=== PATIENT | female | born 1950 | race Caucasian/White ===

== ENCOUNTER → 2021-11-08 | Outpatient (CLI) | payer OTHER ==
[~2021-11-08] MED LIST: ASPI81CH; DILT60; ERGO50000; [UNRECOGNIZED DRUG - OTHER] OS
== END | disposition home or self-care (01) ==
LOC: LAB SHORT 11:00
DX: N39.0 Urinary tract infection, site not specified (principal)
CPT/HCPCS: 87086

== ENCOUNTER → 2022-09-05 | Outpatient (CLI) | payer OTHER | LOC: LAB SHORT 12:35 → LAB 12:35 | DX: R30.0 Dysuria (principal) | CPT/HCPCS: 87086 ==

== ENCOUNTER → 2023-08-28 | Outpatient (CLI) | payer OTHER | LOC: LAB SHORT 08:20 → LAB 08:20 | DX: R30.0 Dysuria (principal); R31.9 Hematuria, unspecified; R35.0 Frequency of micturition | CPT/HCPCS: 87077; 87086; 87186 ==

== ENCOUNTER → 2023-09-06 | Outpatient (CLI) | payer OTHER | LOC: LAB SHORT 13:11 → LAB 13:11 | DX: R30.0 Dysuria (principal) | CPT/HCPCS: 87086 ==

== ENCOUNTER → 2023-09-28 | Outpatient (CLI) | payer OTHER | END | disposition home or self-care (01) | LOC: LAB SHORT 17:19 → LAB 17:19 | DX: R30.0 Dysuria (principal) | CPT/HCPCS: 87077; 87086; 87147; 87186 ==

== ENCOUNTER 2024-01-25 06:42 | Day surgery (SDC) | payer OTHER ==
[~2024-01-25] VITALS: Ht 166.5 cm; Wt 97.4 kg
[2024-01-25] VITALS (12 sets, daily range): BP systolic 93–141; BP diastolic 53–96
[~2024-01-25 06:42] MED LIST changes: +Acetaminophen 500 MG Tab PO SCH; +CeFAZolin Sodium 2,000 MG in NS 100 ML IV SCH; +Chlorhexidine Mouth Care 15 ML UDC MT SCH; -DILT60; +DILT60 PO; +ELIQUIS5 M4 PO; +GLUC500 PO; +Lactated Ringer's 1,000 ML IV SCH; +OxyCODONE HCL 10 MG TABCR PO SCH; +Ropivacaine 0.5% HCl/Pf 67.75 MG,EPINEPHrine HCL 0.25 MG,Ketorolac Tromethamine 15 MG,C... INFIL SCH; +TOCO1000 PO; +VITAMIN B6 PO; +Vitamin D1000 UNI1 PO
[2024-01-25] MEDS ORDERED: EQL GLUCOSAMIN PO (07:32)
[2024-01-25] MEDS ORDERED: PYRI100 PO (07:33)
[2024-01-25] MEDS ORDERED: propofoL 40 ML IV ONE (08:16)
[2024-01-25] MEDS ORDERED: HYDROmorphone HCl/Pf 1MG SYR IV PRN (09:20)
[2024-01-25] MEDS ORDERED: Bisacodyl 10 MG Supp PR PRN (09:20)
[2024-01-25] MEDS ORDERED: Lactated Ringer's 1,000 ML IV SCH (09:25)
[2024-01-25] MEDS ORDERED: DiphenhydrAMINE HCL 25 MG Cap PO PRN (09:25)
[2024-01-25] MEDS ORDERED: OxyCODONE HCL 5 MG TAB PO PRN ×2 (09:25→09:30)
[2024-01-25] MEDS ORDERED: Metoclopramide HCl 5MG / ML 2ML Vial IV PRN (09:25)
[2024-01-25] MEDS ORDERED: Magnesium Hydroxide Conc 10 ML UDC PO PRN (09:25)
[2024-01-25] MEDS ORDERED: propofoL 20 ML IV ONE ×2 (09:30→09:58)
[2024-01-25] MEDS ORDERED: Promethazine HCl 25 MG Tab PO PRN (09:30)
[2024-01-25] MEDS ORDERED: Ondansetron HCl 2 MG / ML 2ML Vial IV PRN (09:30)
[2024-01-25] MEDS ORDERED: Ketorolac Tromethamine 30mg Vial ONE (11:04)
[2024-01-25] MEDS ORDERED: Ketorolac Tromethamine 15mg Vial IV SCH (12:00)
--- NOTE | 2024-01-25 12:03 | NUR ---
PT ARRIVED TO THE ROOM AT 1110. PT ALERT AND ORIENTED. SHE IS TREMULOUS AND STATES SHE FEELS COLD, WARM BLANKET PROVIDED. LLE ELEVATED. PT DENIES PAIN UPON ARRIVAL TO THE ROOM. PT EDUCATED TO USE CALL LIGHT, CALL LIGHT PLACED WITHIN REACH. PT'S SPOUSE PRESENT AT THE BEDSIDE.
--- NOTE | 2024-01-25 12:30 | NUR ---
INCREASING HR TIO CARDENAS NOTIFIED THAT PT DID NOT TAKE CARDIZEM DOSE THIS AM AND THAT HR WAS INCREASING FROM 70-80'S TO 80'S TO 100'S. TIO ORDERED CARDIZEM DOSE FOR PT.
[2024-01-25] MEDS ORDERED: dilTIAZem HCL 240 MG CAP.CD PO ONE (13:30)
--- NOTE | 2024-01-25 14:56 | NUR ---
NAUSEA/VOMITING PT BECAME NAUSEATED AND VOMITED WHILE WORKING WITH THERAPY. ZOFRAN GIVEN. PT REPORTS SHE IS NO LONGER NAUSEATED.
[2024-01-25] MEDS ORDERED: Acetaminophen 500 MG Tab PO SCH (16:00)
--- NOTE | 2024-01-25 16:30 | NUR ---
SHIFT SUMMARY PT AND HER SPOUSE PROVIDED WITH WRITTEN AND VERBAL DISCHARGE INSTRUCTIONS; THEY REPORTED UNDERSTANDING. CLEAN DRESSINGS PROVIDED. PT MET ALL GOALS PRIOR TO DISCHARGE. PAIN MANAGED, VSS, CLEARED THERAPY, VOIDED. PT ABLE TO TOLERATE PO BUT VOMITED X1 DURING THERAPY, ZOFRAN WAS GIVEN AND NAUSEA RESOLVED. PT ENCOURAGED TO STAY UNTIL AFTER DINNER AND NEXT PAIN PILL TO MAKE SURE SHE IS ABLE TO KEEP DOWN FOOD AND FLUIDS. PT DECLINED, EDUCATED REGARDING RISKS VS BENEFITS, PT CHOSE TO DISCHARGE DESPITE RISKS. EV RN NOTIFIED. PT ASSISTED OUT IN W/C AT APPROXIMATELY 1618.
[2024-01-25] MEDS ORDERED: CeFAZolin Sodium 2,000 MG in NS 100 ML IV SCH (17:00)
[2024-01-25] MEDS ORDERED: Docusate Sodium 100 MG Cap PO SCH (21:00)
[2024-01-26] MEDS ORDERED: Apixaban 5 MG Tab PO SCH (09:00)
[2024-01-26] MEDS ORDERED: Cholecalciferol 1000 Unit Tablet (=25MCG) PO SCH (09:00)
[2024-01-26] MEDS ORDERED: PyridOXINE HCL 50 MG TAB PO SCH (09:00)
[2024-01-26] MEDS ORDERED: Vitamin E 1000 Unit Cap PO SCH (09:00)
[2024-01-26] MEDS ORDERED: dilTIAZem HCL 240 MG CAP.CD PO SCH (09:00)
== END 2024-01-25 16:21 | disposition home or self-care (01) ==
LOC: ORSCMMR 06:42 → ORD 08:15 → SURS 11:07 → ORSCMMR 16:21
PROVIDERS: Orthopaedic Surgery
PROC: 0SRD0JA Replacement of Left Knee Joint with Synthetic Substitute, Uncemented, Open Approach (ICD-10-PCS; principal; 2024-01-25 08:15)
DX: M17.12 Unilateral primary osteoarthritis, left knee (principal); I48.91 Unspecified atrial fibrillation; Z79.01 Long term (current) use of anticoagulants; F41.9 Anxiety disorder, unspecified; Z79.899 Other long term (current) drug therapy; E66.9 Obesity, unspecified; Z68.35 Body mass index [BMI] 35.0-35.9, adult
CPT/HCPCS: 73560-LT; 97110; 97116; 97162; A9270; C1776; J0171; J0690; J0735; J1885; J2405; J2704; J2795; J7120

== ENCOUNTER 2024-03-28 06:45 | Day surgery (SDC) | payer OTHER ==
[2024-03-28] VITALS (13 sets, daily range): BP systolic 89–139; BP diastolic 53–100
[~2024-03-28] VITALS: Ht 167.6 cm; Wt 93.2 kg
[~2024-03-28 06:45] MED LIST changes: +CLIN150 PO; +EQL GLUCOSAMIN PO; +PYRI100 PO; +Ropivacaine 0.5% HCl/Pf 123.125 MG,EPINEPHrine HCL 0.25 MG,Ketorolac Tromethamine 15 MG... INFIL SCH; -Ropivacaine 0.5% HCl/Pf 67.75 MG,EPINEPHrine HCL 0.25 MG,Ketorolac Tromethamine 15 MG,C... INFIL SCH; +Tranexamic Acid 100 ML IV SCH
[2024-03-28] MEDS ORDERED: propofoL 100 ML IV ONE (07:15)
[2024-03-28] MEDS ORDERED: propofoL 20 ML IV ONE (07:18)
[2024-03-28] MEDS ORDERED: FentaNYL Citrate 50 MCG/ML 2 ML Injection ONE (07:18)
[2024-03-28] MEDS ORDERED: Scopolamine Hydrobromide Patch TOP ONE (07:30)
--- NOTE | 2024-03-28 07:30 | NUR ---
Ambulatory in Day Surgery History, Chart, Medications and Allergies reviewed before start of procedure.Lungs clear T/O to Auscultation.HR 120's. Heart sounds regualarly irregular.BP139/100-pt reports feeling anxious. Patient confirms NPO status and agrees with scheduled surgery. Patient reports completing Chlorhexadine shower X2 prior to admission to hospital.Surgical site prepped with 2% Chlorhexidine cloth wipe. Patient States Post-Procedure ride home has been arranged.
[2024-03-28] MEDS ORDERED: Etomidate 2MG / ML 10ML Vial ONE (07:33)
[2024-03-28] MEDS ORDERED: OxyCODONE HCL 5 MG TAB PO PRN ×2 (09:55→10:00)
[2024-03-28] MEDS ORDERED: Bisacodyl 10 MG Supp PR PRN (09:55)
[2024-03-28] MEDS ORDERED: Promethazine HCl 25 MG Tab PO PRN (09:55)
[2024-03-28] MEDS ORDERED: DiphenhydrAMINE HCL 25 MG Cap PO PRN (10:00)
[2024-03-28] MEDS ORDERED: Ondansetron HCl 2 MG / ML 2ML Vial IV PRN (10:00)
[2024-03-28] MEDS ORDERED: HYDROmorphone HCl/Pf 1MG SYR IV PRN (10:00)
[2024-03-28] MEDS ORDERED: Metoclopramide HCl 5MG / ML 2ML Vial IV PRN (10:00)
[2024-03-28] MEDS ORDERED: Lactated Ringer's 1,000 ML IV SCH (10:05)
[2024-03-28] MEDS ORDERED: Magnesium Hydroxide Conc 10 ML UDC PO PRN (10:05)
[2024-03-28] MEDS ORDERED: Phenylephrine HCl 100 MCG/ML-NS 10MLSYR (1MG/10ML) ONE (10:29)
[2024-03-28] MEDS ORDERED: Dexamethasone Sod Phos 10 MG/ML 1ML VIAL ONE (10:29)
[2024-03-28] MEDS ORDERED: Ondansetron HCl 2 MG / ML 2ML Vial ONE (10:29)
[2024-03-28] MEDS ORDERED: Acetaminophen 500 MG Tab PO SCH (16:00)
--- NOTE | 2024-03-28 16:17 | NUR ---
DISCHARGE PT HAS WORKED w/ THERAPY. PAIN WELL CONTROLLED. EATING, DRINKING, & VOIDING WELL. JOSEPHINE & QIANA MOHR SENT w/ PT. ESCORTED OUT VIA W/C.
[2024-03-28] MEDS ORDERED: CeFAZolin Sodium 2,000 MG in NS 100 ML IV SCH (17:00)
[2024-03-28] MEDS ORDERED: Ketorolac Tromethamine 15mg Vial IV SCH (18:00)
[2024-03-28] MEDS ORDERED: Docusate Sodium 100 MG Cap PO SCH (21:00)
[2024-03-29] MEDS ORDERED: dilTIAZem HCL 240 MG CAP.CD PO SCH (09:00)
[2024-03-29] MEDS ORDERED: Apixaban 5 MG Tab PO SCH (09:00)
[2024-03-29] MEDS ORDERED: Vitamin E 1000 Unit Cap PO SCH (09:00)
[2024-03-29] MEDS ORDERED: PyridOXINE HCL 50 MG TAB PO SCH (09:00)
[2024-03-29] MEDS ORDERED: Cholecalciferol 1000 Unit Tablet (=25MCG) PO SCH (09:00)
--- NOTE | 2024-03-30 16:18 | NUR ---
03/30/24 1618 Asya Craig VERIFICATIONS: EDIT CHART.
== END 2024-03-28 18:00 | disposition home or self-care (01) ==
LOC: ORSCMMR 06:45 → ORD 08:15 → ORSCMMR 08:15 → SURS 11:23 → ORSCMMR 18:00
PROVIDERS: Orthopaedic Surgery
PROC: 0SRC0JA Replacement of Right Knee Joint with Synthetic Substitute, Uncemented, Open Approach (ICD-10-PCS; principal; 2024-03-28 08:15)
DX: M17.11 Unilateral primary osteoarthritis, right knee (principal); I10 Essential (primary) hypertension; I48.91 Unspecified atrial fibrillation; Z79.01 Long term (current) use of anticoagulants; Z79.899 Other long term (current) drug therapy; Z68.33 Body mass index [BMI] 33.0-33.9, adult
CPT/HCPCS: 73560-RT; 97110; 97116; 97162; A9270; C1713; C1776; J0171; J0690; J0735; J1100; J1885; J2371; J2405; J2704; J2795; J3010; J7120